=== PATIENT | female | born 1965 | race Caucasian/White ===

== ENCOUNTER 2017-07-03 09:26 | Emergency (ER) | payer OTHER ==
[2017-07-03] MEDS ORDERED: METOCLOPRAMIDE HCL 5 MG/ML VIAL IV ONE (09:47)
[2017-07-03] MEDS ORDERED: NORMAL SALINE 1,000 ML IV ONE (09:47)
[2017-07-03] MEDS ORDERED: diphenhydrAMINE HCL 50 MG/ML VIAL IV ONE (09:47)
--- NOTE | 2017-07-03 09:52 | ERNOTE ---
Abdominal HPI - General Chief Complaint: Abdominal Pain Time Seen by Provider: 07/03/17 09:41 Source: patient Exam Limitations: no limitations - Immun/Allergies/Home Medications Immunizatons: IMMUNIZATION HX Immunizations Up to Date Yes History of Influenza Vaccine Yes Allergies/Adverse Reactions: Allergies Iodinated Contrast- Oral and IV Dye [Iodinated Contrast Media - IV Dye] Allergy (Verified 07/03/17 09:35) Home Medications: HOME MEDICATIONS ALPRAZolam [Xanax] 0.5 mg PO TID PRN 07/03/17 [Last Taken Unknown] Ciprofloxacin HCl [Cipro] 500 mg PO BID #10 tablet 07/03/17 [Last Taken Unknown] HYDROcodone/ACETAMINOPHEN [[place] 5-325] 1 each PO Q4H #20 tablet 07/03/17 [Last Taken Unknown] Ondansetron [Zofran Odt] 4 mg PO Q6H PRN #10 tab 07/03/17 [Last Taken Unknown] Pramipexole Di-HCl [Mirapex] 2 tab PO HS 07/03/17 [Last Taken Unknown] SUMAtriptan SUCCINATE [Sumatriptan Succinate] 50 mg PO DAILY PRN MDD 200 [Last Taken Unknown] Tamsulosin HCl [Flomax] 0.4 mg PO DAILY@1800 #7 capsule 07/03/17 [Last Taken Unknown] Zolpidem Tartrate [Ambien] 10 mg PO HS PRN 07/03/17 [Last Taken Unknown] - History of Present Illness Narrative: Patient presents with moderate to severe epigastric and right upper quadrant abdominal pain. Onset of symptoms between 4 and 5 days ago and was initiated by severe vomiting that simply remain now as cramping abdominal pain with nausea. Timing: constant, other - fluctuating Quality: moderate, severe, cramping Activities at Onset: none Associated Symptoms: Present: nausea, vomiting Prior Abdominal Problems: Present: none Review of Systems - Review of Systems Constitutional: Present: See HPI EYE: Present: no symptoms reported ENT: Present: no symptoms reported Respiratory: Present: no symptoms reported Cardiology: Present: no symptoms reported Gastrointestinal/Abdominal: Present: nausea, vomiting, abdominal pain Genitourinary: Present: no symptoms reported Musculoskeletal: Present: no symptoms reported Skin: Present: no symptoms reported Neurological: Present: no symptoms reported Endocrine: Present: no symptoms reported Hematologic/Lymphatic: Present: no symptoms reported Psych: Present: no symptoms reported - Patient's Past Medical History Patient History - Medical: Other Patient History - Cardiac/Respiratory: No pertinent hx Patient History - Cancer: No Hx of Cancer Patient History - Surgical Procedures: Appendectomy - as a child Patient History - Other: None - Social History Living Situations: home Psych History: No pertinent hx Alcohol Use: none Drug Use: none - Immunizations Immunizations Up to Date: Yes History of Influenza Vaccine: Yes Physical Exam - Physical Exam General Appearance: Present: wd/wn, alert, moderate distress, severe distress Head Exam: Present: normal inspection Eye Exam: Normal inspection: bilateral, PERRL: bilateral Ears, Nose, Throat: Present: normal ENT inspection, H, normal pharynx Neck: Present: normal inspection, nontender Respiratory: Present: no respiratory distress, normal breath sounds, no accessory muscle use, chest nontender, lungs clear Cardiovascular/Chest: Present: regular rate, rhythm, no murmur, normal peripheral pulses Gastrointestinal/Abdominal: Present: normal bowel sounds, nondistended, tenderness, guarding, Laguerre sign - equivocal Rectal Exam: Present: deferred Back Exam: Present: normal inspection, normal range of motion Extremity Exam: Present: normal inspection, non-tender, no edema, normal range of motion Neurological Exam: Present: alert, oriented, normal mood/affect Skin Exam: Present: normal color, warm/dry Lymphatic Exam: Present: no adenopathy ED Progress - Results and Orders Patient's Lab Results:: I have reviewed the patient's lab results. - Vital Signs Patient's Vital Signs:: I have reviewed the patient's vital signs. Vital Signs: Vital Signs 07/03/17 09:30 Temperature 36.0 C L Pulse Rate 94 Respiratory 12 Rate Blood Pressure 127/96 O2 Sat by Pulse 100 Oximetry - CT/Ultrasound CT/Ultrasound Narrative: Ultrasound of the gallbladder was reviewed by me CT the abdomen and pelvis was reviewed by me - Progress/Reassessment Chief Complaint: Abdominal Pain Progress:: Improved Plan - Plan Plan: Patient states that a one time there were 2 kidney stones in her and if there is only one now she believes the pain is probably come from passing that another stone. Patient was sent home on Flomax, [place], Zofran and a brief course of Cipro. She states she frequently will get a UTI. Departure Clinical Impression: Kidney stone, Renal colic UTI (urinary tract infection) Qualifiers: Urinary tract infection type: site unspecified Hematuria presence: with hematuria Qualified Code(s): N39.0 - Urinary tract infection, site not specified ; R31.9 - Hematuria, unspecified; R31.9 - Hematuria, unspecified - Departure Disposition: Home self-care Condition: Good Instructions: Renal Colic, [id number], Kidney Stones, [id number], Urinary Tract Infection, Adult, [id number] Referrals: Chiara Lugo MD [Primary Care Provider] - Prescriptions: Ciprofloxacin HCl [Cipro] 500 mg PO BID #10 tablet HYDROcodone/ACETAMINOPHEN [[place] 5-325] 1 each PO Q4H #20 tablet Ondansetron [Zofran Odt] 4 mg PO Q6H PRN #10 tab PRN Reason: Nausea And Vomiting Tamsulosin HCl [Flomax] 0.4 mg PO DAILY@1800 #7 capsule
[2017-07-03] MEDS ORDERED: METOCLOPRAMIDE HCL 5 MG/ML VIAL ONE (10:01)
[2017-07-03] MEDS ORDERED: diphenhydrAMINE HCL 50 MG/ML VIAL ONE (10:01)
[2017-07-03 10:05] LABS: Hematocrit 40.4 % (37.0-47.0); Hemoglobin 13.4 gm/dL (12.5-16.0); Mean Cell Volume 92.9 fl (78-100); Mean Corpuscular Hemoglobin 30.8 pg (27-31); Mean Corpuscular Hgb Conc 33.2 g/dl (32-36); Mean Platelet Volume 9.5 fl (6.0-9.5); Neutrophil # 2.2 K/mm3 (1.3-6.0); Neutrophil % 42.3 % (42-75.0); Platelet Count 313 K/mm3 (150-450); Red Blood Count 4.35 M/mm3 (4.2-5.4); Red Cell Distribution Width 13.1 % (11.5-14.0); White Blood Count 5.1 K/mm3 (4.0-10.5)
[2017-07-03 10:31] LABS: Albumin * 3.8 gm/dl (3.4-5.0); Anion Gap 13.4 mmol/L (6.8-13.8); BUN/Creatinine Ratio 8.9 (9.0-21.6); Bilirubin, Total 0.3 mg/dL (0.0-1.1); Ca. Corrected For Albumin 8.5 mg/dL (8.4-10.2); Calcium * 8.7 mg/dL (7.9-10.9); Potassium 4.4 mmol/L (3.4-4.6); Total Protein 7.1 gm/dL (6.2-8.2)
[2017-07-03 10:35] LABS: Urine Color Yellow
[2017-07-03 10:36] LABS: Urine Appearance Clear; Urine Bilirubin Negative (NEGATIVE); Urine Blood 250 /ul (NEGATIVE); Urine Ketone Negative (NEGATIVE); Urine Nitrite Negative (NEGATIVE); Urine Protein Negative (NEGATIVE); Urine Specific Gravity 1.025 SP.GR. (1.005-1.010); Urine Urobilinogen Normal (NORMAL)
[2017-07-03 10:37] LABS: Urine WBC 0-5 /hpf (0-5)
[2017-07-03 10:38] LABS: Urine Bacteria 1+
[2017-07-03] MEDS ORDERED: fentaNYL CITRATE/PF 50 MCG/ML AMPUL IV ONE (11:08)
[2017-07-03] MEDS ORDERED: fentaNYL CITRATE/PF 50 MCG/ML AMPUL ONE (11:09)
[2017-07-03] MEDS ORDERED: ONDANSETRON HCL/PF 2 MG/ML VIAL ONE (11:17)
[2017-07-03] MEDS ORDERED: ONDANSETRON HCL/PF 2 MG/ML VIAL IV ONE (11:19)
[2017-07-03] MEDS ORDERED: KETOROLAC TROMETHAMINE 30 MG/ML VIAL IV ONE (13:13)
[2017-07-03] MEDS ORDERED: KETOROLAC TROMETHAMINE 30 MG/ML VIAL ONE (13:23)
[2017-07-03 13:29] VITALS: BP 138/70
== END 2017-07-03 13:30 | disposition home or self-care (01) ==
LOC: ER 09:26
DX: N20.0 Calculus of kidney (principal); N39.0 Urinary tract infection, site not specified; R31.9 Hematuria, unspecified
CPT/HCPCS: 36415; 74176; 76705; 80053; 81001; 83605; 83690; 83735; 85025; 96374; 96375; 99284; J2405

== ENCOUNTER 2017-07-23 11:07 | Day surgery (SDC) | payer OTHER ==
[~2017-07-23 11:07] MED LIST: CIPROFLOXACIN HCL 500 MG TABLET PO PRN
[2017-07-23] MEDS ORDERED: LIDOCAINE HCL 10 APPL CARTRIDGE TP ONE (12:25)
[2017-07-23 13:18] LABS: Urine Bilirubin Negative (NEGATIVE); Urine Blood 50 /ul (NEGATIVE); Urine Ketone Negative (NEGATIVE); Urine Nitrite Negative (NEGATIVE); Urine Protein Negative (NEGATIVE); Urine Specific Gravity 1.015 SP.GR. (1.005-1.010); Urine Urobilinogen Normal (NORMAL)
[2017-07-23 13:30] LABS: Urine Appearance Clear; Urine Color Pale Yellow; Urine RBC TRACE /hpf (0-5); Urine WBC None Seen /hpf (0-5)
[2017-07-23 13:31] LABS: Urine Bacteria TRACE
[2017-07-23 14:08] VITALS: BP 112/65
== END 2017-07-23 11:08 | disposition home or self-care (01) ==
LOC: AMB 11:07
PROVIDERS: ATTEND Urology
PROC: 3E1K88X Irrigation of Genitourinary Tract using Irrigating Substance, Via Natural or Artificial Opening Endoscopic, Diagnostic (ICD-10-PCS; 2017-07-23)
PROC: 0TJB8ZZ Inspection of Bladder, Via Natural or Artificial Opening Endoscopic (ICD-10-PCS; principal; 2017-07-23 13:35)
DX: N20.0 Calculus of kidney (principal); Z87.891 Personal history of nicotine dependence; Z68.25 Body mass index [BMI] 25.0-25.9, adult